=== PATIENT | female | born 1980 | race African-American/Black ===

== ENCOUNTER 2016-08-29 17:32 | Emergency (ER) | payer OTHER ==
[~2016-08-29] VITALS: Ht 154.9 cm; Wt 80.3 kg
[~2016-08-29 17:32] MED LIST: ACETAMINOPHEN-1 EAC1 ORAL; AMOXICILLIN500 MG ORAL; AUGMENTIN 875-1 EAC1 ORAL; CIPRO500 MG PO; CLOTRIMAZOLE-745 GM VG; DEBROX15 M1 BOTH EARS; DIFLUCAN150 MG PO; DIFLUCAN200 MG ORAL; DOK100 M1; FEOSOL1 TAB; FLOXIN OTIC10 DROP OT; FLUCONAZOLE100 MG ORAL; FLUCONAZOLE150 MG ORAL; FOLIC ACID1 M1; IBUPROFEN600 MG ORAL; IBUPROFEN800 MG ORAL; LIDOCAINE VISCO20 ML PO; MICONAZOLE 745 G1 VG; MULTIVITAMINS1 EAC2 ORAL; NITROFURANTOIN100 MG PO; NKM; PENICILLIN V P500 MG PO; PROMETHAZINE-C118 M1 ORAL; TYLENOL EXTRA500 MG ORAL; VITAMIN D1000 UNI1 ORAL; ZOFRAN ODT8 MG ORAL; ZOFRAN4 MG/5 ML ORAL
[2016-08-29] MEDS ORDERED: Lidocaine 2% Visc 15ml soln ORAL ONE (18:15)
[2016-08-29] MEDS ORDERED: Dicyclomine HCl 10mg/5ml oral soln ORAL ONE (18:15)
--- NOTE | 2016-08-29 18:18 | Emergency Room Report ---
History of Present Illness General Chief Complaint: Abdominal Pain Source: Patient Present Illness HPI Patient is a 36-year-old female presented for increased abdominal cramping abdominal pain. Patient gradual onset of symptoms. Patient associated nausea and vomiting. Patient was noted to have watery diarrhea. Patient denies any recent fever. She denies any dysuria. She states that she had recently eaten some tacos which may have caused the problem. The patient reported feeling mildly dehydrated. She denied any black or bloody stools. Patient prior history of hernia surgery with mesh. The patient initially had previous urologic surgery for hydronephrosis. She denied any dysuria or fever Allergies: Coded Allergies: ACETAMINOPHEN (Unverified Allergy, Severe, Itching, 06/09/14) HYDROCODONE (Unverified Allergy, Severe, Itching, 06/09/14) Patient History Past Medical History: see triage record Last Menstrual Period: 08/18/16 Now: No Reviewed Nursing Documentation: PMH: Agreed, PSxH: Agreed Nursing Documentation-PMH Past Medical History: No Stated History Hx Cardiac Problems: No Hx Hypertension: No Hx Pacemaker: No Hx Asthma: No Hx COPD: No Hx Diabetes: No Hx Cancer: No Hx Gastrointestinal Problems: Yes Hx Neurological Problems: No Hx Cerebrovascular Accident: No Hx Seizures: No Review of Systems All Other Systems: negative except mentioned in HPI Physical Exam Vital Signs Date Time Temp Pulse Resp B/P Pulse Ox O2 Delivery O2 Flow Rate FiO2 08/29/16 17:43 97.9 108 16 126/90 100 Room Air Sp02 EP Interpretation: reviewed, normal General Appearance: normal inspection, well appearing, no apparent distress, alert, GCS 15, obese Head: atraumatic ENT: normal ENT inspection, hearing grossly normal, normal voice Neck: normal inspection, full range of motion, supple, no bony tend Respiratory: normal inspection, lungs clear, normal breath sounds, no respiratory distress, no retraction, no wheezing Cardiovascular #1: regular rate, rhythm, no edema Gastrointestinal: normal inspection, normal bowel sounds, non tender, soft, no guarding, no hernia Genitourinary: no CVA tenderness Musculoskeletal: normal inspection, back normal, normal range of motion Neurologic: normal inspection, alert, oriented x3, responsive, cross tie turner III-XII nml as tested, speech normal Psychiatric: normal inspection, judgement/insight normal, mood/affect normal Skin: normal inspection, normal color, no rash Medical Decision Making Diagnostic Impression: Primary Impression: Gastroenteritis ER Course Patient presented for abdominal pain. Differential diagnoses included ischemic bowel, appendicitis, perforated viscus, abdominal aortic aneurysm, inferior myocardial infarction, viral gastroenteritis Because of complexity of patient's case laboratory testing and imaging studies were ordered. Patient was given IV fluids as well as IV antiemetics. The patient was noted to have evidence of gastroenteritis. The patient given prescription for antibiotics to 2 elevated white blood count.The patient is advised to follow up with primary care doctor in 1-2 days. Patient is advised to return if any worsening condition or if any changes in status that are concerning. Labs Test 08/29/16 19:20 08/29/16 19:55 08/29/16 21:50 White Blood Count 13.5 K/UL (4.8-10.8) Red Blood Count 4.91 M/UL (4.20-5.40) Hemoglobin 14.5 G/DL (12.0-16.0) Hematocrit 45.6 % (37.0-47.0) Mean Corpuscular Volume 93 FL (80-99) Mean Corpuscular Hemoglobin 29.6 PG (27.0-31.0) Mean Corpuscular Hemoglobin Concent 31.9 G/DL (32.0-36.0) Red Cell Distribution Width 13.5 % (11.6-14.8) Platelet Count 353 K/UL (150-450) Mean Platelet Volume 7.0 FL (6.5-10.1) Neutrophils (%) (Auto) % (45.0-75.0) Lymphocytes (%) (Auto) % (20.0-45.0) Monocytes (%) (Auto) % (1.0-10.0) Eosinophils (%) (Auto) % (0.0-3.0) Basophils (%) (Auto) % (0.0-2.0) Differential Total Cells Counted 100 Neutrophils % (Manual) 90 % (45-75) Lymphocytes % (Manual) 7 % (20-45) Monocytes % (Manual) 3 % (1-10) Eosinophils % (Manual) 0 % (0-3) Basophils % (Manual) 0 % (0-2) Band Neutrophils 0 % (0-8) Platelet Estimate Adequate Platelet Morphology Normal Polychromasia 1+ Sodium Level 142 mEQ/L (135-145) Potassium Level 3.9 mEQ/L (3.4-4.9) Chloride Level 102 mEQ/L (98-107) Carbon Dioxide Level 24 mEQ/L (20-30) Anion Gap 16 (5-15) Blood Urea Nitrogen 13 mg/dL (7-23) Creatinine 1.0 mg/dL (0.5-0.9) Estimat Glomerular Filtration Rate > 60 mL/min (>60) Glucose Level 107 mg/dL (74-106) Calcium Level 9.0 mg/dL (8.6-10.2) Total Bilirubin 0.4 mg/dL (0.0-1.2) Aspartate Amino Transf (AST/SGOT) 16 U/L (5-40) Alanine Aminotransferase (ALT/SGPT) 10 U/L (3-33) Alkaline Phosphatase 50 U/L (35-104) Total Protein 7.7 g/dL (6.6-8.7) Albumin 4.2 g/dL (3.5-5.2) Globulin 3.5 g/dL Albumin/Globulin Ratio 1.2 (1.0-2.7) Urine Color Pale yellow Urine Appearance Clear Urine pH 6 (4.5-8.0) Urine Specific [place] 1.015 (1.005-1.035) Urine Protein Negative (NEGATIVE) Urine Glucose (UA) Negative (NEGATIVE) Urine Ketones Negative (NEGATIVE) Urine Occult Blood Negative (NEGATIVE) Urine Nitrite Negative (NEGATIVE) Urine Bilirubin Negative (NEGATIVE) Urine Urobilinogen Normal MG/DL (0.0-1.0) Urine Leukocyte Esterase Negative (NEGATIVE) Urine HCG, Qualitative Negative Last Vital Signs Date Time Temp Pulse Resp B/P Pulse Ox O2 Delivery O2 Flow Rate FiO2 08/29/16 17:43 97.9 108 16 126/90 100 Room Air Status: improved Disposition: HOME, SELF-CARE Condition: Stable Scripts Dicyclomine Hcl* (BENTYL*) 10 Mg Capsule 10 MG ORAL FOUR TIMES A DAY, #20 CAP Prov: Mat Penny 08/29/16 Ciprofloxacin Hcl* (CIPROFLOXACIN HCL*) 500 Mg Tablet 500 MG ORAL Q12H, #14 TAB 0 Refills Prov: Mat Penny 08/29/16 Loperamide HCl (Loperamide) 2 Mg Capsule 2 MG ORAL Q4H, #20 CAP 0 Refills Prov: Mat Penny 08/29/16 Ondansetron (Zofran) 4 Mg Tablet 4 MG ORAL Q6H Y for Nausea & Vomiting, #30 TAB 0 Refills Prov: Mat Penny 08/29/16 Referrals: [employer] [facility],KARI (PCP) Mat Penny Aug 29, 2016 18:18
[2016-08-29] MEDS ORDERED: Tubing IV Cassette IV ONE (18:19)
[2016-08-29] MEDS ORDERED: ZOFRAN4 MG ORAL (19:05)
[2016-08-29] MEDS ORDERED: IMODIUM2 MG ORAL (19:05)
[2016-08-29 19:59] LABS: MEAN CORPUSCULAR HEMOGLOBIN 29.6 PG (27.0-31.0); MEAN CORPUSCULAR HGB CONC 31.9 G/DL (32.0-36.0); MEAN CORPUSCULAR VOLUME 93 FL (80-99); PLATELET COUNT 353 K/UL (150-450); RED BLOOD COUNT 4.91 M/UL (4.20-5.40); RED CELL DISTRIBUTION WIDTH 13.5 % (11.6-14.8); WHITE BLOOD COUNT 13.5 K/UL (4.8-10.8)
[2016-08-29 20:16] LABS: ALANINE AMINOTRANSFERASE 10 U/L (3-33); ALBUMIN/GLOBULIN RATIO 1.2 (1.0-2.7); ANION GAP 16 (5-15); ASPARTATE AMINO TRANSFERASE 16 U/L (5-40); CARBON DIOXIDE 24 mEQ/L (20-30); CHLORIDE 102 mEQ/L (98-107); GLOMERULAR FILTRATION RATE > 60 mL/min (>60); HEMOLYSIS 3; POTASSIUM 3.9 mEQ/L (3.4-4.9); SODIUM 142 mEQ/L (135-145); TOTAL PROTEIN 7.7 g/dL (6.6-8.7)
[2016-08-29 20:35] LABS: LYMPHOCYTES % (MANUAL) 7 % (20-45); NEUTROPHILS % (MANUAL) 90 % (45-75); TOTAL CELLS COUNTED 100
[2016-08-29 20:36] LABS: BAND NEUTROPHILS % (MANUAL) 0 % (0-8); BASOPHILS % (MANUAL) 0 % (0-2); EOSINOPHILS % (MANUAL) 0 % (0-3); PLATELET ESTIMATE ADEQUATE; PLATELET MORPHOLOGY NORMAL
[2016-08-29 20:37] LABS: POLYCHROMASIA 1+
[2016-08-29] MEDS ORDERED: Ketorolac 60mg Inj IM ONE (22:00)
[2016-08-29 22:21] LABS: APPEARANCE,URINE CLEAR; KETONES,URINE NEGATIVE (NEGATIVE); LEUKOCYTE ESTERASE ,URINE NEGATIVE (NEGATIVE); NITRITE,URINE NEGATIVE (NEGATIVE); PH,URINE 6 (4.5-8.0); PROTEIN,URINE NEGATIVE (NEGATIVE); UROBILINOGEN,URINE NORMAL MG/DL (0.0-1.0)
[2016-08-29] MEDS ORDERED: CIPROFLOXACIN500 M2 ORAL (22:26)
[2016-08-29] MEDS ORDERED: BENTYL10 MG ORAL (22:29)
[2016-08-29 22:38] VITALS: BP 129/87
== END 2016-08-29 22:39 | disposition home or self-care (01) ==
LOC: EMR 18:08
DX: K52.9 Noninfective gastroenteritis and colitis, unspecified (principal); Z88.6 Allergy status to analgesic agent
CPT/HCPCS: 36415; 80053; 81003; 81025; 85007; 85025; 96360; 96374; 99284; J2405; J7040

== ENCOUNTER 2017-03-22 18:58 | Emergency (ER) | payer OTHER ==
[~2017-03-22] VITALS: Ht 154.9 cm; Wt 63.5 kg
[~2017-03-22 18:58] MED LIST changes: +BENTYL10 MG ORAL; +CIPROFLOXACIN500 M2 ORAL; +IMODIUM2 MG ORAL; +ZOFRAN4 MG ORAL
[2017-03-22 19:25] VITALS: BP 142/88
[2017-03-22 19:46] LABS: APPEARANCE,URINE CLEAR; KETONES,URINE NEGATIVE (NEGATIVE); LEUKOCYTE ESTERASE ,URINE 1+ (NEGATIVE); NITRITE,URINE NEGATIVE (NEGATIVE); PH,URINE 6.5 (4.5-8.0); PROTEIN,URINE NEGATIVE (NEGATIVE); UROBILINOGEN,URINE NORMAL MG/DL (0.0-1.0)
[2017-03-22 19:55] LABS: BACTERIA,URINE OCCASIONAL /HPF; RBC,URINE 0-2 /HPF (0 - 2); SQUAMOUS EPITHELIAL CELL,UR FEW /LPF (NONE/OCC); WBC,URINE 0-2 /HPF (0 - 2)
[2017-03-22] MEDS ORDERED: PREDNISONE20 MG ORAL (20:13)
[2017-03-22] MEDS ORDERED: ROBITUSSIN LON118 ML PO (20:13)
[2017-03-22] MEDS ORDERED: AMOXICILLIN500 MG ORAL (20:13)
[2017-03-22 20:16] VITALS: BP 142/88
[2017-03-22] MEDS ORDERED: DIFLUCAN150 MG PO (20:30)
--- NOTE | 2017-03-22 21:39 | Emergency Room Report ---
History of Present Illness General Chief Complaint: Flu Like Symptoms Source: Patient Present Illness HPI The patient is a 36-year-old female presenting for sore throat, cough, ear pain , and subjective fever for the past 3 days. 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 Pain is an 8/10 dull ache primarily to the back of the throat and does not radiate. Worse with swallowing. She denies any other symptoms including nausea, vomiting, headache , dizziness, neck pain or stiffness, rash Allergies: Coded Allergies: ACETAMINOPHEN (Unverified Allergy, Severe, Itching, 06/09/14) HYDROCODONE (Unverified Allergy, Severe, Itching, 06/09/14) Patient History Reviewed Nursing Documentation: PMH: Agreed, PSxH: Agreed Nursing Documentation-PMH Hx Cardiac Problems: No Hx Hypertension: No Hx Pacemaker: No Hx Asthma: No Hx COPD: No Hx Diabetes: No Hx Cancer: No Hx Gastrointestinal Problems: Yes Hx Neurological Problems: No Hx Cerebrovascular Accident: No Hx Seizures: No Review of Systems All Other Systems: negative except mentioned in HPI Physical Exam Vital Signs Date Time Temp Pulse Resp B/P (MAP) Pulse Ox O2 Delivery O2 Flow Rate FiO2 03/22/17 19:02 98.2 113 20 142/88 97 Room Air Sp02 EP Interpretation: reviewed, normal General Appearance: no apparent distress, alert, GCS 15, non-toxic Head: normocephalic, atraumatic Eyes: bilateral eye normal inspection, bilateral eye PERRL ENT: hearing grossly normal, no angioedema, normal voice, uvula midline, tonsillar swelling, pharyngeal erythema Neck: full range of motion, supple/symm/no masses Respiratory: chest non-tender, lungs clear, normal breath sounds, speaking full sentences Cardiovascular #1: regular rate, rhythm, no edema Musculoskeletal: back normal, gait/station normal, normal range of motion, non- tender Neurologic: alert, oriented x3, responsive, motor strength/tone normal, sensory intact, speech normal Psychiatric: judgement/insight normal, memory normal, mood/affect normal, no suicidal/homicidal ideation Skin: normal color, no rash, warm/dry, well hydrated Lymphatic: adenopathy - cervical Medical Decision Making PA Attestation Dr. Johnston is my supervising physician. Patient management was discussed with my supervising physician Diagnostic Impression: Primary Impression: Pharyngitis, acute Qualified Codes: J02.9 - Acute pharyngitis, unspecified ER Course The patient is a 36-year-old male presenting for URI symptoms for 3 days Differential diagnosis include but not limited to pharyngitis, sinusitis, AOM, bronchitis, PNA Physical exam: Vitals within normal limits. Afebrile. No apparent distress HEENT exam: There is bilateral tonsillar edema, erythema. Uvula midline. Moist mucous membranes. There is bilateral cervical lymphadenopathy. Lungs are clear to auscultation bilaterally Skin is warm and dry. No rash The patient will be discharged home with a prescription for amoxicillin, cough medication, prednisone, and is given ER precautions. Patient will followup with primary care The patient is given a prescription for diflucan as she states she gets vaginal yeast infections after taking abx. Last Vital Signs Date Time Temp Pulse Resp B/P (MAP) Pulse Ox O2 Delivery O2 Flow Rate FiO2 03/22/17 19:25 98.2 113 20 142/88 97 Room Air Status: improved Disposition: HOME, SELF-CARE Condition: Improved Scripts Fluconazole (DIFLUCAN) 150 Mg Tablet 150 MG PO DAILY, #1 TAB Prov: EMI LASSITER P.A. 03/22/17 Dextromethorphan Hbr/Chlor-Mal (ROBITUSSIN LONG-ACTING LIQ) 118 Ml Liquid 10 ML PO Q6HR, #118 ML Prov: TERPETERANGORDYY P.A. 03/22/17 Prednisone* (PREDNISONE*) 20 Mg Tablet 20 MG ORAL DAILY, #5 TAB 0 Refills Prov: TERPETERANEMI P.A. 03/22/17 Amoxicillin* (AMOXIL*) 500 Mg Capsule 500 MG ORAL Q12HR, #20 CAP Prov: FERNANDAANEMI P.A. 03/22/17 Patient Instructions: Pharyngitis Additional Instructions: I discussed my findings with the patient. All questions and concerns have been answered. Treatment and medication compliance have been addressed. I advised the patient that they need to follow up with PMD in 3-5 days. Return to ED if pain remains or worsens, cough worsens or remains, you notice blood in your sputum, you notice wheezing, you experience a fever, or if needed for any reason. Patient verbalized understanding of discharge instructions. EMI LASSITER Mar 22, 2017 21:38
== END 2017-03-22 20:16 | disposition home or self-care (01) ==
LOC: EMR 19:17
DX: J02.9 Acute pharyngitis, unspecified (principal); Z88.6 Allergy status to analgesic agent; R59.0 Localized enlarged lymph nodes
CPT/HCPCS: 81003; 81025; 99284

== ENCOUNTER 2017-04-29 20:30 | Emergency (ER) | payer MEDICAID, OTHER ==
[~2017-04-29] VITALS: Ht 154.9 cm; Wt 68.0 kg
[~2017-04-29 20:30] MED LIST changes: +PREDNISONE20 MG ORAL; +ROBITUSSIN LON118 ML PO
[2017-04-29 21:00] VITALS: BP 123/82
[2017-04-29] MEDS ORDERED: TESSALON PERLE100 MG ORAL (21:35)
[2017-04-29 21:40] VITALS: BP 123/82
--- NOTE | 2017-04-29 23:48 | Emergency Room Report ---
History of Present Illness General Chief Complaint: Sore Throat Source: Patient Present Illness HPI 37-year-old female in no significant past medical history presenting with cough for 2 weeks. Patient states that she recently had a viral illness, with cough runny nose, but states that the cough has been persistent. Nonproductive. Also associated with sore throat. Patient is still been able to eat and drink normally. No sick contacts or recent travel no fever or chills Allergies: Coded Allergies: ACETAMINOPHEN (Unverified Allergy, Severe, Itching, 06/09/14) HYDROCODONE (Unverified Allergy, Severe, Itching, 06/09/14) Patient History Past Medical History: see triage record Past Surgical History: none Pertinent Family History: none Last Menstrual Period: 04/28/17 Now: No Reviewed Nursing Documentation: PMH: Agreed, PSxH: Agreed Nursing Documentation-PMH Hx Cardiac Problems: No Hx Hypertension: No Hx Pacemaker: No Hx Asthma: No Hx COPD: No Hx Diabetes: No Hx Cancer: No Hx Gastrointestinal Problems: Yes Hx Neurological Problems: No Hx Cerebrovascular Accident: No Hx Seizures: No Review of Systems All Other Systems: negative except mentioned in HPI Physical Exam Vital Signs Date Time Temp Pulse Resp B/P (MAP) Pulse Ox O2 Delivery O2 Flow Rate FiO2 04/29/17 21:00 98.1 100 18 123/82 100 Room Air Sp02 EP Interpretation: reviewed, normal General Appearance: normal inspection, well appearing, no apparent distress, alert, GCS 15, non-toxic Head: normocephalic, atraumatic Eyes: bilateral eye normal inspection, bilateral eye PERRL, bilateral eye EOMI ENT: normal ENT inspection, normal pharynx, normal voice, moist mucus membranes Neck: normal inspection, full range of motion, supple Respiratory: normal inspection, lungs clear, normal breath sounds, no respiratory distress, no retraction, no wheezing, speaking full sentences, chest symmetrical Cardiovascular #1: normal inspection, regular rate, rhythm, no edema, normal capillary refill Cardiovascular #2: 2+ radial (R), 2+ radial (L) Gastrointestinal: normal inspection, non tender, soft, non-distended, no guarding Musculoskeletal: normal inspection, back normal, normal range of motion, non- tender Neurologic: normal inspection, alert, oriented x3, responsive, motor strength/ tone normal, sensory intact, normal gait, speech normal Psychiatric: normal inspection, judgement/insight normal, memory normal Skin: normal inspection, normal color, no rash, warm/dry, well hydrated, normal turgor Medical Decision Making Diagnostic Impression: Primary Impression: Post-viral cough syndrome ER Course 37-year-old female with cough for 2 weeks after viral syndrome DDX: Likely postviral cough Not concerned with pneumonia in this patient, lung exam is normal, patient appears well Plan: Supportive care ER course: Patient remains nontoxic, not in resp distress. Disposition: Patient is to be discharged home with a prescription of Tessalon Perles Strict precautions discussed with patient on when to return to the emergency room including hemoptysis, high fevers, chills, SOB, chest pain which may indicate severe illness. Patient is to follow up with their primary care doctor within 5 days. Patient agrees with plan. Please note that this Emergency Department Report was dictated using [employer] supply chain planning technology software, occasionally this can lead to erroneous entry secondary to interpretation by the dictation equipment Electronically signed by Tho Reich MD Last Vital Signs Date Time Temp Pulse Resp B/P (MAP) Pulse Ox O2 Delivery O2 Flow Rate FiO2 04/29/17 21:00 98.1 100 18 123/82 100 Room Air Disposition: HOME, SELF-CARE Condition: Stable Scripts Benzonatate* (TESSALON PERLE*) 100 Mg Capsule 100 MG ORAL THREE TIMES A DAY for 7 Days, #21 PERLE 0 Refills Prov: Tho Reich M.D. 04/29/17 Referrals: NON PHYSICIAN (PCP) Patient Instructions: Cough, Adult, [id number] Tho Reich M.D. Apr 29, 2017 23:48
== END 2017-04-29 21:40 | disposition home or self-care (01) ==
LOC: EMR 20:58
DX: R05 Cough (principal); R09.89 Other specified symptoms and signs involving the circulatory and respiratory systems; Z88.6 Allergy status to analgesic agent
CPT/HCPCS: 99283

== ENCOUNTER 2017-07-26 17:42 | Emergency (ER) | payer MEDICAID, OTHER ==
[~2017-07-26] VITALS: Ht 154.9 cm; Wt 56.7 kg
[~2017-07-26 17:42] MED LIST changes: +TESSALON PERLE100 MG ORAL
[2017-07-26 18:00] VITALS: BP 121/79
--- NOTE | 2017-07-26 18:08 | Emergency Room Report ---
History of Present Illness General Chief Complaint: General Complaint Source: Patient Present Illness HPI Patient is a 37-year-old female who presented after increased fever and generalized weakness. Patient reported having increased body aches. She reported having fever up to 102 to she denies any cough. She presents having generalized malaise. She denied vomiting. She reports having prior history of renal stent in her left kidney. The patient had not been vomiting.Patient reported having prior history of renal disease. She denies any chronic medical condition. Allergies: Coded Allergies: ACETAMINOPHEN (Unverified Allergy, Severe, Itching, 06/09/14) HYDROCODONE (Unverified Allergy, Severe, Itching, 06/09/14) Patient History Past Medical History: see triage record Reviewed Nursing Documentation: PMH: Agreed, PSxH: Agreed Nursing Documentation-PMH Hx Cardiac Problems: No Hx Hypertension: No Hx Pacemaker: No Hx Asthma: No Hx COPD: No Hx Diabetes: No Hx Cancer: No Hx Gastrointestinal Problems: Yes Hx Neurological Problems: No Hx Cerebrovascular Accident: No Hx Seizures: No Review of Systems All Other Systems: negative except mentioned in HPI Physical Exam Vital Signs Date Time Temp Pulse Resp B/P (MAP) Pulse Ox O2 Delivery O2 Flow Rate FiO2 07/26/17 17:45 99.0 112 20 112/67 100 Room Air Sp02 EP Interpretation: reviewed, normal General Appearance: normal inspection, well appearing, no apparent distress, alert, GCS 15, non-toxic Head: atraumatic ENT: normal ENT inspection, hearing grossly normal, normal voice Neck: normal inspection, full range of motion, supple, no bony tend Respiratory: normal inspection, lungs clear, normal breath sounds, no respiratory distress, no retraction, no wheezing Cardiovascular #1: regular rate, rhythm, no edema Gastrointestinal: normal inspection, normal bowel sounds, non tender, soft, no guarding, no hernia Genitourinary: no CVA tenderness Musculoskeletal: normal inspection, back normal, normal range of motion Neurologic: normal inspection, alert, oriented x3, responsive, bread jockey III-XII nml as tested, speech normal Psychiatric: normal inspection, judgement/insight normal, mood/affect normal Skin: normal inspection, normal color, no rash Medical Decision Making Diagnostic Impression: Primary Impression: UTI (lower urinary tract infection) ER Course Patient presented for generalized weakness. Differential diagnosis included was not limited to anemia, urinary tract infection, electrolyte abnormality, hypothyroidism, myocardial infarction, myasthenia gravis, dehydration, among others. Patient was noted to have evidence of urinary infection. She was given IV antibiotics. Patient was given prescription for further antibiotic therapy. She was given ibuprofen as well as nonnarcotic pain medication. At the time of discharge patient was awake alert and oriented. The patient is advised to follow up with primary care doctor in 1-2 days. Patient is advised to return if any worsening condition or if any changes in status that are concerning. This report is dictated with [employer] social science instructor software which may occasionally lead to discrepancies related to use of this software. Labs Test 07/26/17 17:30 07/26/17 18:40 Urine Color Pale yellow Urine Appearance Slightly cloudy Urine pH 6 (4.5-8.0) Urine Specific [place] 1.010 (1.005-1.035) Urine Protein Negative (NEGATIVE) Urine Glucose (UA) Negative (NEGATIVE) Urine Ketones 1+ (NEGATIVE) Urine Occult Blood 2+ (NEGATIVE) Urine Nitrite Negative (NEGATIVE) Urine Bilirubin Negative (NEGATIVE) Urine Urobilinogen Normal MG/DL (0.0-1.0) Urine Leukocyte Esterase 3+ (NEGATIVE) Urine RBC 2-4 /HPF (0 - 2) Urine WBC 20-30 /HPF (0 - 2) Urine Squamous Epithelial Cells Few /LPF (NONE/OCC) Urine Bacteria Moderate /HPF (NONE) White Blood Count 10.7 K/UL (4.8-10.8) Red Blood Count 4.89 M/UL (4.20-5.40) Hemoglobin 13.7 G/DL (12.0-16.0) Hematocrit 45.0 % (37.0-47.0) Mean Corpuscular Volume 92 FL (80-99) Mean Corpuscular Hemoglobin 28.0 PG (27.0-31.0) Mean Corpuscular Hemoglobin Concent 30.4 G/DL (32.0-36.0) Red Cell Distribution Width 12.9 % (11.6-14.8) Platelet Count 303 K/UL (150-450) Mean Platelet Volume 6.1 FL (6.5-10.1) Neutrophils (%) (Auto) 74.0 % (45.0-75.0) Lymphocytes (%) (Auto) 18.0 % (20.0-45.0) Monocytes (%) (Auto) 7.5 % (1.0-10.0) Eosinophils (%) (Auto) 0.0 % (0.0-3.0) Basophils (%) (Auto) 0.4 % (0.0-2.0) Sodium Level 137 MMOL/L (136-145) Potassium Level 4.7 MMOL/L (3.5-5.1) Chloride Level 102 MMOL/L (98-107) Carbon Dioxide Level 26 MMOL/L (21-32) Anion Gap 9 mmol/L (5-15) Blood Urea Nitrogen 8 mg/dL (7-18) Creatinine 0.9 MG/DL (0.55-1.30) Estimat Glomerular Filtration Rate > 60 mL/min (>60) Glucose Level 80 MG/DL (74-106) Lactic Acid Level 1.40 mmol/L (0.66-2.22) Calcium Level 9.2 MG/DL (8.5-10.1) Total Bilirubin 0.7 MG/DL (0.2-1.0) Aspartate Amino Transf (AST/SGOT) 28 U/L (15-37) Alanine Aminotransferase (ALT/SGPT) 12 U/L (12-78) Alkaline Phosphatase 50 U/L (46-116) Total Creatine Kinase 115 U/L (26-308) Creatine Kinase MB < 0.5 NG/ML (0.0-3.6) Creatine Kinase MB Relative Index 0.4 Total Protein 7.9 G/DL (6.4-8.2) Albumin 3.4 G/DL (3.4-5.0) Globulin 4.5 g/dL Albumin/Globulin Ratio 0.8 (1.0-2.7) EKG Diagnostic Results Rate: tachycardiac - 103 Rhythm: NSR ST Segments: no acute changes Last Vital Signs Date Time Temp Pulse Resp B/P (MAP) Pulse Ox O2 Delivery O2 Flow Rate FiO2 07/26/17 17:45 99.0 112 20 112/67 100 Room Air Status: improved Disposition: HOME, SELF-CARE Condition: Stable Scripts Ibuprofen* (MOTRIN*) 600 Mg Tablet 600 MG ORAL Q8H Y for For Pain, #30 TAB 0 Refills Prov: Mat Penny 07/26/17 Cephalexin* (KEFLEX*) 500 Mg Capsule 500 MG ORAL Q6H, #28 CAP 0 Refills Prov: Mat Penny 07/26/17 Mat Penny Jul 26, 2017 18:08
[2017-07-26 18:30] LABS: APPEARANCE,URINE SLIGHTLY CLOUDY; BILIRUBIN, URINE NEGATIVE (NEGATIVE); COLOR,URINE PALE YELLOW; GLUCOSE, URINE (UA) NEGATIVE (NEGATIVE); KETONES,URINE 1+ (NEGATIVE); LEUKOCYTE ESTERASE ,URINE 3+ (NEGATIVE); NITRITE,URINE NEGATIVE (NEGATIVE); PH,URINE 6 (4.5-8.0); PROTEIN,URINE NEGATIVE (NEGATIVE); UROBILINOGEN,URINE NORMAL MG/DL (0.0-1.0)
[2017-07-26 19:07] LABS: BASOPHILS % (AUTO) 0.4 % (0.0-2.0); HEMOGLOBIN 13.7 G/DL (12.0-16.0); MEAN CORPUSCULAR VOLUME 92 FL (80-99); MONOCYTES % (AUTO) 7.5 % (1.0-10.0); PLATELET COUNT 303 K/UL (150-450); RED BLOOD COUNT 4.89 M/UL (4.20-5.40); RED CELL DISTRIBUTION WIDTH 12.9 % (11.6-14.8); WHITE BLOOD COUNT 10.7 K/UL (4.8-10.8)
[2017-07-26] MEDS ORDERED: cefTRIAXone 2 GM in NS 55 ML IVPB ONE (19:15)
[2017-07-26] MEDS ORDERED: Lidocaine 2% 100mg/5ml Carp IV ONE (19:15)
[2017-07-26 19:34] LABS: ANION GAP 9 mmol/L (5-15); BLOOD UREA NITROGEN 8 mg/dL (7-18); CALCIUM 9.2 MG/DL (8.5-10.1); CARBON DIOXIDE 26 MMOL/L (21-32); CHLORIDE 102 MMOL/L (98-107); CREATININE 0.9 MG/DL (0.55-1.30); POTASSIUM 4.7 MMOL/L (3.5-5.1); SODIUM 137 MMOL/L (136-145)
[2017-07-26] MEDS ORDERED: IBUPROFEN600 MG ORAL (19:44)
[2017-07-26] MEDS ORDERED: KEFLEX500 MG ORAL (19:44)
[2017-07-26 19:48] LABS: ALANINE AMINOTRANSFERASE 12 U/L (12-78); ALBUMIN 3.4 G/DL (3.4-5.0); ALBUMIN/GLOBULIN RATIO 0.8 (1.0-2.7); ALKALINE PHOSPHATASE 50 U/L (46-116); ASPARTATE AMINO TRANSFERASE 28 U/L (15-37); BILIRUBIN,TOTAL 0.7 MG/DL (0.2-1.0); CKMB < 0.5 NG/ML (0.0-3.6); CREATINE KINASE 115 U/L (26-308)
[2017-07-26 19:55] VITALS: BP 104/60
[2017-07-26 20:56] VITALS: BP 106/66
[2017-07-26 20:57] VITALS: BP 106/66
--- NOTE | 2017-07-27 08:35 | Diagnostic Imaging Report ---
Indication: Shortness of breath Technique: One view of the chest Comparison: none Findings: Lungs and pleural spaces are clear. Heart size is normal Impression: No acute process
--- NOTE | 2017-07-27 18:57 | Cardiology Report ---
APPROVED REPORT EKG Measurement Heart [id number] Sinus tachycardia Otherwise normal ECG
== END 2017-07-26 21:00 | disposition home or self-care (01) ==
LOC: EMR 18:00
DX: N39.0 Urinary tract infection, site not specified (principal); Z88.6 Allergy status to analgesic agent
CPT/HCPCS: 36415; 71045; 80053; 81003; 82550; 82553; 83605; 85025; 86710; 87040; 87086; 93005; 96361; 96365; 96375; 99284; J0696